=== PATIENT | male | born 1975 | race Caucasian/White ===

== ENCOUNTER 2016-06-16 13:33 | Emergency (ER) | payer BC, OTHER ==
[2016-06-16 15:07] VITALS: BP 146/103
[2016-06-16] MEDS ORDERED: Ketorolac INJ* 30 MG/ML 1 ML VIAL IM ONE (16:17)
--- NOTE | 2016-06-16 16:19 | UC ---
Back Pain HPI - HPI Summary HPI Summary: 40 yo male slipped and fell while at work landing on his back has low back pain radiating down both legs HX of Herniated disc Needed PT for about 6 months no back surgery - History of Current Complaint Chief Complaint: UCBackPain Stated Complaint: BACK INJURY Time Seen by Provider: 06/16/16 15:57 Hx Obtained From: Patient Onset/Duration: Sudden Onset, Lasting Hours Timing: Constant Severity Initially: Mild Severity Currently: Severe Pain Intensity: 10 Pain Scale Used: 0-10 Numeric Back Pain: Is Diffuse Character: Throbbing, Spasmodic Aggravating: Movement Alleviating: Rest Associated Signs And Symptoms: Negative: Swelling, Redness, Bruising, Fever, Weakness, Numbness, Tingling, Abdominal Pain, Flank Pain, Bladder Incontinence, Bowel Incontinence, Weight Loss, Pain with Weight Bearing - Allergies/Home Medications Allergies/Adverse Reactions: Allergies Allergy/AdvReac Type Severity Reaction Status Date / Time BEE STING Allergy Severe Anaphylatic Uncoded 06/16/16 15:00 Shock PMH/Surg Hx/FS Hx/Imm Hx Endocrine History Of: Reports: Diabetes - Type 2 Cardiovascular History Of: Reports: Hypertension Denies: Pacemaker/ICD Respiratory History Of: Denies: Asthma GI/ History Of: Denies: Renal Disease - Surgical History Surgical History: Yes Surgery Procedure, Year, and Place: NASAL BLEED 2005, 2015 - Family History Known Family History: Positive: Diabetes - Social History Alcohol Use: Occasionally Alcohol Amount: 12 PACK/WEEK Substance Use Type: None Smoking Status (MU): Current Every Day Smoker Type: Cigarettes Amount Used/How Often: 3/4 PPD Review of Systems Constitutional: Negative Skin: Negative Eyes: Negative ENT: Negative Respiratory: Negative Cardiovascular: Negative Gastrointestinal: Negative Genitourinary: Negative Motor: Negative Neurovascular: Negative Musculoskeletal: Negative Neurological: Negative Psychological: Negative All Other Systems Reviewed And Are Negative: Yes Physical Exam Triage Information Reviewed: Yes Appearance: Pain Distress, Thin Vital Signs: Initial Vital Signs Temp 98.5 F 06/16/16 15:01 Pulse 85 06/16/16 15:01 Resp 18 06/16/16 15:01 BP 146/103 06/16/16 15:01 Pulse Ox 98 06/16/16 15:01 Vital Signs Reviewed: Yes Eyes: Positive: Conjunctiva Clear ENT: Negative: Pharynx normal, Nasal congestion, Nasal drainage, TM bulging, Tonsillar exudate, Muffled/hoarse voice Neck: Positive: Supple, Nontender Respiratory: Positive: Lungs clear, Normal breath sounds, No respiratory distress, No accessory muscle use Cardiovascular: Positive: RRR, No Murmur. Negative: Tachycardia, Bradycardia Abdomen Description: Positive: Nontender, Soft. Negative: CVA Tenderness (R), CVA Tenderness (L) Bowel Sounds: Positive: Present Musculoskeletal: Positive: No Edema Neurological: Positive: Alert, Other: - (-) SLR DTRs equal symmetrically Psychological Exam: Normal Skin Exam: Normal Back Pain Course/Dx - Differential Dx/Diagnosis Provider Diagnoses: acute lumbar strain. sciatica (suspect nondiscogenic) Discharge - Discharge Plan Condition: Stable Disposition: HOME Prescriptions: Cyclobenzaprine TAB* [Flexeril TAB*] 5 mg PO TID PRN #21 tab PRN Reason: Spasms HYDROcodone/ACETAMIN 5-325 MG* [[place] 5-325 TAB*] 1 tab PO Q4H PRN #20 tab MDD 5 PRN Reason: Pain Ibuprofen TAB* [Motrin TAB*] 600 mg PO QID PRN #40 tab PRN Reason: Pain Patient Education Materials: Sciatica (ED), Low Back Strain (ED) Forms: *Work Release Referrals: Franki Landeros MD [Medical Doctor] - As Soon As Possible Images Front/Back of Body, Lg ([place]): 1 - tender right>left
--- NOTE | 2016-06-16 17:29 | RAD ---
INDICATION: Trauma, back pain. COMPARISON: Comparison is made with a prior CT of the lumbar spine from April 19, 2010. TECHNIQUE: 5 views of the lumbar spine were obtained including lateral, oblique, AP and a coned-down lateral view of the lumbar sacral junction. FINDINGS: There is a mild lumbar scoliosis convex toward the right side. No fracture is seen. There is mild to moderate disc space narrowing and endplate spurring present at the L1-L2 and L2-L3 levels. IMPRESSION: 1. MILD SCOLIOSIS, NO EVIDENCE FOR FRACTURE. 2. MILD TO MODERATE DEGENERATIVE DISC DISEASE.
[2016-06-16] MEDS ORDERED: HYDROcodone/ACETAMIN 5-325 MG* 1 TAB PO ONE (17:35)
== END 2016-06-16 17:45 | disposition home or self-care (01) ==
LOC: UCEAST 13:33
DX: S39.012A Strain of muscle, fascia and tendon of lower back, initial encounter (principal); W18.30XA Fall on same level, unspecified, initial encounter; Y93.9 Activity, unspecified; Y92.89 Other specified places as the place of occurrence of the external cause; Y99.0 Civilian activity done for income or pay; M54.30 Sciatica, unspecified side; F17.210 Nicotine dependence, cigarettes, uncomplicated
CPT/HCPCS: 72110; 96372; 99212; G0463; J1885

== ENCOUNTER 2017-02-22 21:37 | Emergency (ER) | payer OTHER ==
[2017-02-22 21:51] VITALS: BP 150/79
--- NOTE | 2017-02-22 22:26 | ED ---
Lower Extremity - HPI Summary HPI Summary: 41 y/o male here c/o left ankle pain for the last 3 week. He reports that he was at work and he twisted his ankle. Since then he reports intermittent pain at about 4/10. He is able to bear weight an ambulate well but occasionally he complaints of pain. He has no other complaints. - History of Current Complaint Chief Complaint: UCLowerExtremity Stated Complaint: L ANKLE INJURY Time Seen by Provider: 02/22/17 22:09 Hx Obtained From: Patient Mechanism Of Injury: Twisted Onset of Pain: Immediate Onset/Duration: Weeks Severity Initially: Moderate Severity Currently: Mild Pain Intensity: 4 Timing: Intermittent Character Of Pain: Aching Associated Signs And Symptoms: Positive: Negative Aggravating Factor(s): Standing Alleviating Factor(s): Rest - Risk Factors Gout Risk Factors: Negative DVT Risk Factors: Negative Septic Arthritis Risk Factor: Negative - Allergies/Home Medications Allergies/Adverse Reactions: Allergies Allergy/AdvReac Type Severity Reaction Status Date / Time BEE STING Allergy Severe Anaphylatic Uncoded 06/16/16 15:00 Shock PMH/Surg Hx/FS Hx/Imm Hx Endocrine/Hematology History: Reports: Hx Diabetes - Type 2 Cardiovascular History: Reports: Hx Hypertension - does not take meds Denies: Hx Pacemaker/ICD Respiratory History: Denies: Hx Asthma History: Denies: Hx Renal Disease Sensory History: Reports: Hx Contacts or Glasses - CONTACTS Denies: Hx Hearing Aid Opthamlomology History: Reports: Hx Contacts or Glasses - CONTACTS Psychiatric History: Denies: Hx Panic Disorder - Surgical History Surgery Procedure, Year, and Place: NASAL BLEED 2005, 2015 Hx Anesthesia Reactions: No Infectious Disease History: Yes Infectious Disease History: Reports: Hx Shingles Denies: Traveled Outside the [place] in Last 30 Days - Family History Known Family History: Positive: Diabetes - Social History Alcohol Use: Occasionally Alcohol Amount: 12 PACK/WEEK Substance Use Type: Reports: None Smoking Status (MU): Light Every Day Tobacco Smoker Type: Cigarettes Amount Used/How Often: 3/4 PPD Review of Systems Constitutional: Negative Eyes: Negative ENT: Negative Cardiovascular: Negative Respiratory: Negative Gastrointestinal: Negative Genitourinary: Negative Positive: Arthralgia Skin: Negative Neurological: Negative Psychological: Normal All Other Systems Reviewed And Are Negative: Yes Physical Exam - Summary Physical Exam Summary: Vital signs: reviewed General: Patient is comfortable lying in stretcher with no signs of distress HEENT: within normal limits Lungs: CTA B/L CVS: S1 & S2 present. No murmurs appreciated. ABDOMEN: Soft, non-tender. No signs of distention. No rebound no guarding, and no masses palpated. Bowel sounds are normal. EXTREMITIES: FROM in all major joints, no edema, no cyanosis or clubbing. Mild tenderness at palpation in the lateral malleolus. NEURO: Alert and oriented x 3. No acute neurological deficits. Speech is normal and follows commands. SKIN: Dry and warm Triage Information Reviewed: Yes Vital Signs On Initial Exam: Initial Vitals Temp Pulse Resp BP Pulse Ox 98.4 F 86 18 150/79 100 02/22/17 21:48 02/22/17 21:48 02/22/17 21:48 02/22/17 21:48 02/22/17 21:48 Vital Signs Reviewed: Yes Diagnostics - Vital Signs Vital Signs Temp Pulse Resp BP Pulse Ox 02/22/17 21:48 98.4 F 86 18 150/79 100 - Laboratory Lab Statement: Any lab studies that have been ordered have been reviewed, and results considered in the medical decision making process. Lower Extremity Course/Dx - Course Assessment/Plan: 41 y/o male here c/o left ankle pain for the last 3 week. He reports that he was at work and he twisted his ankle. Since then he reports intermittent pain at about 4/10. He is able to bear weight an ambulate well but occasionally he complaints of pain. He has no other complaints. Ankle and foot X-ray: Negative for drature or dislocation. I offered a posterior splint but patient declined. He was placed in ankle david bandages. He request an orthopedic referral. I discussed all the findings and test results with the patient. Patient was instructed to return to the emergency room immediately if any of the symptoms return or worsens. Plan of care was discussed with the patient and understands and agrees. All questions were answered at patient satisfaction. There were no further complaints or concerns. Lung exam before discharge: CTA B/L. Good air exchange. No wheezing or crackles heard. CVS: S1 and S2 present. No murmurs appreciated. Patient is alert and oriented x 3. Patient is hemodynamically stable. Patient will be discharged home with follow up ore feeder in the next 2-3 days - Diagnoses Differential Diagnosis/HQI/PQRI: Positive: Arthritis, Bursitis, Cellulitis, Contusion, Fracture (Closed) Provider Diagnoses: Ankle sprain Discharge - Discharge Plan Condition: Stable Disposition: HOME Patient Education Materials: Ankle Sprain (ED), Arthralgia (ED) Referrals: Sharri Mars MD [Primary Care Provider] - Geo Duenas MD [Medical Doctor] -
--- NOTE | 2017-02-23 07:40 | RAD ---
INDICATION: Left lateral ankle pain after injury 3 weeks earlier COMPARISON: None. TECHNIQUE: 3 views of the left ankle and 3 views of the left foot were obtained. FINDINGS: The well corticated bones exhibit normal alignment. Joint spaces appear maintained. No fracture is seen. IMPRESSION: NO RADIOGRAPHICALLY APPARENT FRACTURE OF THE LEFT FOOT OR ANKLE. If the patient's symptoms persist, follow-up imaging is recommended.
== END 2017-02-22 22:32 | disposition home or self-care (01) ==
LOC: UCEAST 21:37
DX: S93.402A Sprain of unspecified ligament of left ankle, initial encounter (principal); X50.1XXA Overexertion from prolonged static or awkward postures, initial encounter; Y93.9 Activity, unspecified; Y92.89 Other specified places as the place of occurrence of the external cause; Y99.0 Civilian activity done for income or pay; E11.9 Type 2 diabetes mellitus without complications; F17.210 Nicotine dependence, cigarettes, uncomplicated
CPT/HCPCS: 99212; G0463

== ENCOUNTER 2018-02-22 16:55 | Emergency (ER) | payer SELFPAY ==
[2018-02-22] MEDS ORDERED: Ibuprofen TAB* 400 MG PO ONE (18:13)
[2018-02-22] MEDS ORDERED: HYDROcodone/ACETAMIN 5-325 MG* 1 TAB PO ONE (18:57)
--- NOTE | 2018-02-22 18:57 | UC ---
Back Pain HPI - HPI Summary HPI Summary: The patient is a 42-year-old male who has had a 2 week history of progressively worsening low back pain. He has decreased range of motion and pain radiating down his right leg to his foot. He has no bowel or bladder dysfunction. He has a remote history of a occupational back injury and he states his Worker's Comp. case is still open. He states he has had an MRI in the past but is been probably 8 or 10 years. He states that he was told he had 2 herniated disks. He has chronic low back pain since that his injury. His leg symptoms tend to come and go. - History of Current Complaint Chief Complaint: UCBackPain Stated Complaint: BACK PAIN Time Seen by Provider: 02/22/18 18:30 Hx Obtained From: Patient Onset/Duration: Gradual Onset, Lasting Weeks Timing: Constant Severity Initially: Moderate Severity Currently: Severe Pain Intensity: 7 Pain Scale Used: 0-10 Numeric Back Pain: Is Diffuse, Radiates To - right leg Character: Aching, Throbbing, Spasmodic, Stiffness Aggravating Factor(s): Movement, Lifting, Walking, Cough Alleviating Factor(s): Rest, OTC Meds Related History: Similar Episode Dx As - HNP, Occupational Injury, Previous Back Injury - Allergies/Home Medications Allergies/Adverse Reactions: Allergies Allergy/AdvReac Type Severity Reaction Status Date / Time BEE STING Allergy Severe Anaphylatic Uncoded 02/22/18 17:06 Shock Home Medications: Home Medications Naproxen Sodium [Aleve] 2 tab PO ONCE 02/22/18 [History Confirmed 02/22/18] PMH/Surg Hx/FS Hx/Imm Hx Previously Healthy: Yes - Surgical History Surgical History: Yes Surgery Procedure, Year, and Place: NASAL BLEED 2005, 2015 - Family History Known Family History: Positive: Hypertension, Diabetes - Social History Alcohol Use: Occasionally Alcohol Amount: 12 PACK/WEEK Substance Use Type: None Smoking Status (MU): Light Every Day Tobacco Smoker Type: Cigarettes Amount Used/How Often: 3/4 PPD Review of Systems Constitutional: Negative Skin: Negative Eyes: Negative ENT: Negative Respiratory: Negative Cardiovascular: Negative Gastrointestinal: Negative Genitourinary: Negative Motor: Negative Neurovascular: Negative Musculoskeletal: Myalgia Neurological: Negative Psychological: Negative Is Patient Immunocompromised?: No All Other Systems Reviewed And Are Negative: Yes Physical Exam Triage Information Reviewed: Yes Appearance: Well-Appearing, No Pain Distress, Well-Nourished Vital Signs: Initial Vital Signs Temp 98.8 F 02/22/18 17:04 Pulse 102 02/22/18 17:04 Resp 24 02/22/18 17:04 BP 149/109 02/22/18 17:04 Pulse Ox 97 02/22/18 17:04 Eyes: Positive: Conjunctiva Clear ENT: Positive: Hearing grossly normal. Negative: Nasal congestion, Nasal drainage, Trismus, Muffled voice, Hoarse voice Neck: Positive: Supple, Nontender Respiratory: Positive: Lungs clear, Normal breath sounds, No respiratory distress, No accessory muscle use Cardiovascular: Positive: RRR, No Murmur Abdomen Description: Positive: Nontender Musculoskeletal: Positive: ROM Intact, No Edema Neurological Exam: Normal Psychological Exam: Normal Skin Exam: Normal Back Pain Course/Dx - Differential Dx/Diagnosis Provider Diagnoses: DDD. right sciatica Discharge - Sign-Out/Discharge Documenting (check all that apply): Patient Departure All imaging exams completed and their final reports reviewed: No Studies - Discharge Plan Condition: Stable Disposition: HOME Prescriptions: HYDROcodone/ACETAMIN 5-325 MG* [[place] 5-325 TAB*] 1 tab PO Q4H PRN #20 tab MDD 5 PRN Reason: Pain Patient Education Materials: Sciatica (ED), Degenerative Disc Disease (ED) Forms: *Work Release Referrals: Britton Red MD [Medical Doctor] - As Soon As Possible Additional Instructions: see your back specialist or Dr. Red this week PT consult Aleve 2 twice daily with food [place] if needed Opioid-containing medications can cause drowsiness and sedation. You t should not drive or operate machinery or similar activities while taking this medication. Opioids can also cause a positive drug screen, and can be habit- forming. You should follow the instructions exactly and not take any extra medication. Opioid medications should be stored in a secure manner to avoid diversion or theft. You should not drink alcohol while taking these medications - Billing Disposition and Condition Condition: STABLE Disposition: Home Images Front/Back of Body, Lg ([place]): 1 - pain, tender R>L 2 - radiates
[2018-02-22 19:11] VITALS: BP 144/88
== END 2018-02-22 19:30 | disposition home or self-care (01) ==
LOC: UCEAST 16:55
DX: M51.36 Other intervertebral disc degeneration, lumbar region (principal); M54.31 Sciatica, right side; F17.210 Nicotine dependence, cigarettes, uncomplicated
CPT/HCPCS: 99212; A9270-GY; G0463

== ENCOUNTER 2018-03-01 12:48 | Emergency (ER) | payer OTHER ==
[2018-03-01] MEDS ORDERED: Ketorolac INJ* 60 MG/2 ML VIAL IM ONE (13:22)
--- NOTE | 2018-03-01 15:33 | RAD ---
INDICATION: Low back pain. COMPARISON: Correlation is made with a prior study from April 19, 2010. TECHNIQUE: Contiguous axial sections were obtained beginning above the T11 vertebra and continuing through the L5-S1 disc space. Images were reconstructed in the sagittal and coronal planes. FINDINGS: VERTEBRA: There is a mild lumbar scoliosis convex toward the right side. The vertebra are otherwise in normal alignment. No fracture is seen. L1-L2: There is a mild broad-based disc bulge and mild hypertrophic changes within the facet joints. There is mild spinal canal narrowing. Neural foramen appear patent on both sides. L2-L3: There is a moderate broad-based disc bulge and mild hypertrophic changes within the facet joints. There is mild to moderate spinal canal narrowing. There is mild neural foraminal narrowing on the left side. L3-L4: There is a mild to moderate broad-based disc bulge and mild hypertrophic changes within the facet joints. There is mild to moderate spinal canal narrowing and mild bilateral neural foraminal narrowing. L4-L5: There is a mild broad-based disc bulge and mild hypertrophic changes within the facet joints. There is mild spinal canal narrowing and mild neural foraminal narrowing on the left side. L5-S1: There is a minimal broad-based disc bulge. No spinal canal or neural foraminal narrowing is seen. IMPRESSION: 1. NO EVIDENCE FOR FRACTURE. 2. MILD TO MODERATE LUMBAR SPONDYLOSIS. IF THE PATIENT'S SYMPTOMS PERSIST RECOMMEND AN MRI OF THE LUMBAR SPINE FOR FURTHER EVALUATION.
--- NOTE | 2018-03-01 17:54 | ED ---
Back Pain - HPI Summary HPI Summary: A 42 y/o M referred from his PCP presents to ED with c/o lower back pain initial onset one week ago while at work, worsening today. The back pain is radiating to his lower abd and groin. Associated sx: urinary incontinence one episode 2 days ago. PCP requesting MRI to r/o cauda equina. Pt does manual labor. - History of Current Complaint Chief Complaint: EDBackInjuryPain Stated Complaint: BACK PAIN Hx Obtained From: Patient, Family/Social Media Sr Strategy Manager - girlfriend Onset/Duration: Lasting Weeks - initial onset one week ago, Still Present Timing: Constant Back Pain Location: Is Discrete @ - lower back Severity Initially: Moderate Severity Currently: Moderate Pain Intensity: 5 Pain Scale Used: 0-10 Numeric Aggravating Symptom(s): Movement Associated Signs And Symptoms: Positive: Bladder Incontinence - 1x - Allergies/Home Medications Allergies/Adverse Reactions: Allergies Allergy/AdvReac Type Severity Reaction Status Date / Time BEE STING Allergy Severe Anaphylatic Uncoded 03/01/18 13:19 Shock PMH/Surg Hx/FS Hx/Imm Hx Previously Healthy: No Endocrine/Hematology History: Reports: Hx Diabetes - Type 2 Cardiovascular History: Reports: Hx Hypertension Denies: Hx Pacemaker/ICD Respiratory History: Denies: Hx Asthma History: Denies: Hx Renal Disease Sensory History: Reports: Hx Contacts or Glasses - CONTACTS Denies: Hx Hearing Aid Opthamlomology History: Reports: Hx Contacts or Glasses - CONTACTS Psychiatric History: Denies: Hx Panic Disorder - Surgical History Surgery Procedure, Year, and Place: NASAL BLEED 2005, 2016 Hx Anesthesia Reactions: No Infectious Disease History: No Infectious Disease History: Reports: Hx Shingles Denies: Traveled Outside the [place] in Last 30 Days - Family History Known Family History: Positive: Hypertension, Diabetes - Social History Occupation: Employed Full-time Lives: With Family Alcohol Use: Occasionally Alcohol Amount: 12 PACK/WEEK Substance Use Type: Reports: None Smoking Status (MU): Light Every Day Tobacco Smoker Type: Cigarettes Amount Used/How Often: 3/4 PPD Review of Systems Negative: Fever Negative: Blurred Vision Negative: Sore Throat, Ear Ache Negative: Chest Pain Negative: Cough Positive: Abdominal Pain - radiating from back Positive: incontinence - urinary 1x, pain - testicular pain radiating from back. Negative: dysuria Positive: Other - pos: back pain. Negative: Edema - pedal edema Skin: Negative Negative: Headache Psychological: Normal All Other Systems Reviewed And Are Negative: No Physical Exam - Summary Physical Exam Summary: Appearance: Alert, conversive, nontoxic appearing. Moderate distress secondary to pain. Skin: Warm, dry, no mottling, no rashes, no contusions HEENT: EOMI, PERRL, moist mucous membranes Neck: No masses on the neck, supple Respiratory: Clear to auscultation, breath sounds present, no rales, no rhonchi , no wheezes Cardiovascular: RRR, pulses are symmetrical in both lower and upper extremities Abdomen: Soft, non-tender Bowel Sounds: Present Musculoskeletal: No CVA tenderness, no obvious deformity. Difficulty turning. Neurological: A&Ox3, CN II-XII Intact, moving all extremities symmetrically Psychiatric: Normal affect and mood Triage Information Reviewed: Yes Vital Signs On Initial Exam: Initial Vitals Temp Pulse Resp BP Pulse Ox 97.9 F 112 18 165/125 100 03/01/18 13:17 03/01/18 13:17 03/01/18 13:17 03/01/18 13:17 03/01/18 13:17 Vital Signs Reviewed: Yes Diagnostics - Vital Signs Vital Signs Temp Pulse Resp BP Pulse Ox 03/01/18 17:07 98.8 F 87 18 125/83 99 03/01/18 15:40 99 F 84 18 120/84 98 03/01/18 13:17 97.9 F 112 18 165/125 100 - Laboratory Result Diagrams: 03/01/18 18:57 03/01/18 18:57 Lab Statement: Any lab studies that have been ordered have been reviewed, and results considered in the medical decision making process. - CT L-SPINE CT CT Interpretation: Positive (See Comments) - IMPRESSION: 1. NO EVIDENCE FOR FRACTURE. 2. MILD TO MODERATE LUMBAR SPONDYLOSIS. IF THE PATIENT'S SYMPTOMS PERSIST RECOMMEND AN MRI OF THE LUMBAR SPINE FOR FURTHER EVALUATION. ED provider has reviewed this report. CT Interpretation Completed By: Radiologist - Additional Comments Diagnostic Additional Comments: L-SPINE MRI as read by radiologist: IMPRESSION: Multilevel lumbar spondylopathy with L2-L3 disc protrusion possibly compressing the left L3 nerve root. ED provider has reviewed this report. Re-Evaluation - Re-Evaluation 1 Re-Evaluation Time: 21:25 Change: Improved Comment: Discussing MRI results, no evidence of cauda equina. Pt's pain has improved, denies any episodes of incontinence, saddle numbness while being in ED. Father and friend present at bedside. Back Pain Course/Dx - Course Course Of Treatment: Pt is a 42 y/o M referred from his PCP for MRI to r/o cauda equina presenting with lower back pain initial onset one week ago while at work, worsening today. The back pain is radiating to his lower abd and groin. Associated sx: urinary incontinence one episode 2 days ago. - Diagnoses Provider Diagnoses: Disc herniation Discharge - Sign-Out/Discharge Documenting (check all that apply): Patient Departure - Discharge Plan Condition: Stable Disposition: HOME Prescriptions: Diazepam TAB(*) [Valium TAB(*)] 5 mg PO TID PRN #20 tab MDD 3 PRN Reason: Spasms Hydrocodone/Acetaminophen [[place] 5-325 Tablet] 2 each PO QID #30 tablet MDD 8 predniSONE TAB* [Deltasone 20 MG TAB*] 60 mg PO DAILY #15 tab MDD 3 Patient Education Materials: Lumbar Disc Herniation (ED) Forms: *Work Release Referrals: Sharri Mars MD [Primary Care Provider] - Additional Instructions: Please take the norco, valium, and prednisone as instructed. return if worse or any new symptoms including bowel or urinary incontinence, numbness to your genital area or any new weakness or numbness to your legs. It is important to keep your appt with your spine and wellness doctor this thursday. no heavy lifting. no lifting greater than 5 lbs. - Billing Disposition and Condition Condition: STABLE Disposition: Home - Attestation Statements Document Initiated by Crissyibkevin: Yes Documenting Scribe: Andrea Anderson Provider For Whom Grant is Documenting (Include Credential): Dr. Vanna Cota MD Scribe Attestation: Andrea German scribed for Dr. Vanna Cota MD on 03/01/18 at 2156. Scribe Documentation Reviewed: Yes Provider Attestation: The documentation as recorded by the Andrea lindo accurately reflects the service I personally performed and the decisions made by , Dr. Vnana Cota MD
[2018-03-01] MEDS ORDERED: Ondansetron INJ* 2 MG/ML VIAL IV ONE (18:26)
[2018-03-01] MEDS ORDERED: HYDROmorphone INJ* 2 MG/ML CARPUJECT SYRINGE IV SLOW PU ONE (18:26)
[2018-03-01] MEDS ORDERED: Dexamethasone IV* 4 MG/ML 5 ML VIAL (20 MG) IVPB ONE (18:28)
[2018-03-01] MEDS ORDERED: HYDROmorphone INJ1* 1 MG/ML SYRINGE ONE (18:29)
[2018-03-01 19:03] LABS: ABS Basophils 0.1 10^3/ul (0-0.2); ABS Eosinophils 0.2 10^3/ul (0-0.6); ABS Lymphocytes 3.3 10^3/ul (1.0-4.8); ABS Monocytes 0.7 10^3/ul (0-0.8); ABS Neutrophils 6.5 10^3/ul (1.5-7.7); ABS Nucleated RBC 0 10^3/ul; Eosinophil % 1.7 % (0-6); Hematocrit 47 % (42-52); Hemoglobin 16.6 g/dl (14.0-18.0); Lymphocyte % 31.1 % (25-47); Mean Corpuscular HGB Conc 35 g/dl (31-36); Mean Corpuscular Hemoglobin 31 pg (27-31); Mean Corpuscular Volume 88 fL (80-94); Mean Platelet Volume 7.7 um3 (7.4-10.4); Nucleated Red Blood Cells % 0.2; Platelet Count 179 10^3/ul (150-450); Red Blood Count 5.33 10^6/ul (4.00-5.40); Red Cell Distribution Width 13 % (10.5-15); White Blood Count 10.8 10^3/ul (3.5-10.8)
--- NOTE | 2018-03-01 21:14 | RAD ---
EXAM: MR Lumbar Spine Without Intravenous Contrast. EXAM DATE/TIME: 03/01/2018 8:24 PM CLINICAL HISTORY: 42 years old, male; Pain; Low back pain; Patient HX: C/O lower back pain since last thursday following an injury. Had one episode of urinary incontinence 2 days ago; Additional info: Urinary incontinence, back pain TECHNIQUE: Multiplanar magnetic resonance images of the lumbar spine without intravenous contrast. . Exam is focused on the lumbar spine. COMPARISON: SP L WO CT SPINE LUMBAR W/O 03/01/2018 3:03 PM FINDINGS: Vertebrae: Normal lumbar lordosis without spondylolisthesis. Vertebral body heights are maintained. Modic type II changes along the L1-L2 and L2-L3 disc space. Otherwise normal marrow signal intensity. Spinal cord: Cauda equina terminates at L1. Normal signal intensity of the visualized cord. T12-L1: There is no disc space narrowing. No canal stenosis or foraminal narrowing. The facet joints are normal. L1-L2: Mild symmetric disc bulge without canal stenosis.The facet joints are normal. No neural foraminal narrowing. L2-L3: Symmetric disc bulge with small left foraminal disc protrusion narrowing the left lateral recess and deviating the descending left L3 nerve root. No canal stenosis. The facet joints are normal. No neural foraminal narrowing. L3-L4: Left or asymmetric disc bulge causing no canal stenosis.The facet joints are normal. No neural foraminal narrowing. L4-L5: Symmetric disc bulge without canal stenosis.The facet joints demonstrate mild degenerative hypertrophy and sclerosis. No neural foraminal narrowing. L5-S1: There is no disc space narrowing. No canal stenosis or foraminal narrowing. The facet joints are normal. Soft tissues: Normal. IMPRESSION: Multilevel lumbar spondylopathy with L2-L3 disc protrusion possibly compressing the left L3 nerve root. To contact [facility] with a general question: [facility] - [phone] For direct physician to physician contact: Physician Hotline - [phone] [facility] ([facility] Facility ID #[id number])
[2018-03-01] MEDS ORDERED: HYDROcodone/ACETAMIN 5-325 MG* 1 TAB PO ONE (21:41)
[2018-03-01] MEDS ORDERED: Diazepam TAB(*) 5 MG PO ONE (21:41)
[2018-03-01 22:45] VITALS: BP 126/89
== END 2018-03-01 22:45 | disposition home or self-care (01) ==
LOC: ED 12:48
DX: M51.26 Other intervertebral disc displacement, lumbar region (principal)
CPT/HCPCS: 36415; 72131; 72148; 80053; 85025; 96372; 96374; 96375; 99284; A9270-GY; J1100; J1170; J1885; J2405